=== PATIENT | female | born 1945 | race Native Hawaiian/Other Pacific Islander ===

== ENCOUNTER 2016-11-15 12:00 | Inpatient (IN) | payer MEDICARE, OTHER ==
[~2016-11-15] VITALS: Ht 154.9 cm; Wt 49.9 kg
[~2016-11-15 12:00] MED LIST: ASCO-371 PO; Acetaminophen GT; Blood Sugar Diagnostic VI; CLOP75TA2 PO; DEXT50DI8 IV; DOCU50LI GT; INSU100V28 SQ; LACT1CAP69 PO; LEVO100T10 GT; LINA5TAB PO; LISI2.5T2 PO; MULT-70 GT; Nut.tx.glucose Intolerance,Soy GT; PANT40SU2 GT; SIMV10TA6 GT
--- NOTE | 2016-11-15 12:18 | NUR ---
ekg in progress
--- NOTE | 2016-11-15 12:33 | NUR ---
laborer aquatic life at bedside for blood draw
[2016-11-15] MEDS ORDERED: [UNRECOGNIZED DRUG - OTHER] SQ (12:48)
[2016-11-15] MEDS ORDERED: GUAR1PAC2 GT (12:48)
[2016-11-15] MEDS ORDERED: GLIM2TAB GT (12:48)
[2016-11-15 12:49] LABS: BASOPHILS # (AUTO) 0.1 K/uL (0.0-8.0); BASOPHILS % (AUTO) 0.7 % (0.0-2.0); EOSINOPHILS # (AUTO) 0.8 K/uL (0.0-0.7); HEMATOCRIT 30.7 % (31.2-41.9); HEMOGLOBIN 10.8 g/dL (10.9-14.3); LYMPHOCYTES # (AUTO) 1.5 K/uL (20.0-40.0); LYMPHOCYTES % (AUTO) 17.5 % (20.5-51.5); MEAN CORPUSCULAR HEMOGLOBIN 35.5 uug (24.7-32.8); MEAN CORPUSCULAR HGB CONC 35 g/dL (32.3-35.6); MEAN CORPUSCULAR VOLUME 100.8 fL (75.5-95.3); MONOCYTES # (AUTO) 0.6 K/uL (2.0-10.0); MONOCYTES % (AUTO) 7.5 % (0.0-11.0); NEUTROPHILS # (AUTO) 5.6 K/uL (1.8-8.9); NEUTROPHILS % (AUTO) 65.3 % (38.5-71.5); PLATELET COUNT (AUTO) 232 K/uL (179-408); RED BLOOD CELL COUNT(AUTO) 3.05 MIL/uL (3.63-4.92); RED CELL DISTRIBUTION WIDTH 12.5 % (12.3-17.7); WHITE BLOOD COUNT (AUTO) 8.6 K/uL (3.8-11.8)
--- NOTE | 2016-11-15 12:53 | NUR ---
u/s tech at bedside for daryl venous doppler
[2016-11-15 12:59] LABS: ALBUMIN 3.7 g/dL (3.4-5.0); BILIRUBIN,DIRECT 0.1 mg/dL (0.0-0.2); BILIRUBIN,TOTAL 0.5 mg/dL (0.2-1.0); CALCIUM 9.7 mg/dL (8.5-10.1); POTASSIUM 4.4 mmol/L (3.5-5.1); TOTAL PROTEIN, SERUM 7.6 g/dL (6.4-8.2)
--- NOTE | 2016-11-15 14:13 | NUR ---
Pt vital signs updated patient restingi n bed in nad, at bedside.
[2016-11-15] MEDS ORDERED: INSULIN REGULAR, HUMAN 300 UNIT/3 ML VIAL SQ PRN (15:00)
[2016-11-15] MEDS ORDERED: ONDANSETRON 4 MG/2 ML VIAL IV PRN (15:00)
[2016-11-15] MEDS ORDERED: MORPHINE SULFATE 2 MG/1 ML DISP.SYRIN IV PRN (15:00)
[2016-11-15] MEDS ORDERED: MAGNESIUM HYDROXIDE 30 ML LIQUID UDC GT PRN (15:00)
[2016-11-15] MEDS ORDERED: DEXTROSE 50% 50 ML DISP.SYRIN IV PRN (15:00)
[2016-11-15] MEDS ORDERED: ACETAMINOPHEN 325 MG TABLET GT PRN (15:00)
[2016-11-15] MEDS ORDERED: Z GUARD REMEDY PASTE 57 GM TUBE TOP PRN (15:00)
--- NOTE | 2016-11-15 15:18 | NUR ---
report given to trey Gaytan for continuity of care .
--- NOTE | 2016-11-15 15:37 | NUR ---
Pt states "it hurts " speaking of her IV, R ac PIV flushed and blood return noted. Pt no c/o pain when flushing line.
--- NOTE | 2016-11-15 15:40 | NUR ---
ADMITTED FROM [facility] A 71 YO FEMALE WITH ADM DX OF SEIZURE DISORDER, ALERT BUT APHASIC DUE TO HX OF CVA/ RADHA, AT BEDSIDE FOR ADMISSION HX
[2016-11-15 15:45] VITALS: BP 122/70
[2016-11-15] MEDS ORDERED: ACETAMINOPHEN 650 MG/20.3 ML LIQUID UDC GT PRN (15:45)
[2016-11-15] MEDS ORDERED: LEVOFLOXACIN 500 MG/D5W 500 MG in PREMIXED 1 EACH IV SCH (16:00)
--- NOTE | 2016-11-15 16:49 | NUR ---
ROUTINE ADMISSION ASESSMENT INITIATED
[2016-11-15] MEDS: NUTRISOURCE FIBER 4 GM PACKET GT SCH (17:14)
[2016-11-15] MEDS: BLOOD SUGAR DIAGNOSTIC 1 EACH STRIP VI SCH ×2 (18:07→23:58)
[2016-11-15] MEDS: DIABETICSOURCE AC 1000ML LIQUID GT PRN (18:41)
--- NOTE | 2016-11-15 19:00 | NUR ---
PATIENT AWAKE BUT APHASIC, PATIENT RYTHM IS SINUS RYTHM, ON GTF FEEDING TOLERATE WELL, NO SOB NO CHEST PAIN NOTED, AIR MATTRESS AND DVT PUMP IN PLACE, TURN AND REPOSITION.
[2016-11-15 20:08] VITALS: BP 99/48
[2016-11-15] MEDS ORDERED: SIMVASTATIN 10 MG TABLET GT SCH (21:00)
--- NOTE | 2016-11-15 23:23 | NUR ---
PATIENT AWAKE, BUT APHASIC NO SOB NO CHEST NOTED, TURN AND REPOSITION, RYTHM IS SINUS RYTHM 90, NO S/S OF DISTRESS, GIVEN REPORT TO NURSE TAKING OVER. NO DISTRESS.
--- NOTE | 2016-11-15 23:39 | NUR ---
RECEIVED PATIENT IN BED AWAKE, BUT APHASIC, IN NO APPARENT DISTRESS. EVEN AND NONLABORED BREATHING OBSERVED. ON GT FEEDING AT 60 CC/HR, RESIDUAL OF 25CC. IV INTACT AND PATENT. REPOSITIONED FOR COMFORT. HOB ELEVATED. ON AIR MATTRESS. ASPIRATION PRECAUTIONS MAINTAINED. WILL CONTINUE TO MONITOR.
[2016-11-16] VITALS: BP 106/61
[2016-11-16 04:00] VITALS: BP 120/58
[2016-11-16] MEDS: BLOOD SUGAR DIAGNOSTIC 1 EACH STRIP VI SCH ×3 (05:34→17:45)
[2016-11-16] MEDS: PANTOPRAZOLE ORAL SUSPENSION 40 MG SUSPDR.PKT GT SCH (05:34)
--- NOTE | 2016-11-16 06:55 | NUR ---
PT RESTING IN BED, IN NO ACUTE DISTRESS NOTED THROUGHOUT SHIFT.GT FEEDING AT 60CC/HR, TOLERATING WELL, NO RESIDUAL THIS AM. KEPT CLEAN AND DRY. TURNED/REPOSITIONED. ALL NEEDS MET. CALL LIGHT IN REACH. SAFETY MAINTAINED. Addendum: 11/16/16 at 0740 by WENDY STEPHEN RN NO SEIZURE ACTIVITY NOTED PER SHIFT.
[2016-11-16 06:59] LABS: BASOPHILS % (AUTO) 0.5 % (0.0-2.0); EOSINOPHILS # (AUTO) 0.6 K/uL (0.0-0.7); EOSINOPHILS % (AUTO) 6.3 % (0.0-7.0); HEMATOCRIT 29.9 % (31.2-41.9); HEMOGLOBIN 10.8 g/dL (10.9-14.3); LYMPHOCYTES # (AUTO) 1.4 K/uL (20.0-40.0); MEAN CORPUSCULAR HEMOGLOBIN 36.4 uug (24.7-32.8); MEAN CORPUSCULAR HGB CONC 36 g/dL (32.3-35.6); MEAN CORPUSCULAR VOLUME 100.9 fL (75.5-95.3); MONOCYTES # (AUTO) 0.7 K/uL (2.0-10.0); MONOCYTES % (AUTO) 7.6 % (0.0-11.0); NEUTROPHILS # (AUTO) 6.5 K/uL (1.8-8.9); NEUTROPHILS % (AUTO) 70.6 % (38.5-71.5); PLATELET COUNT (AUTO) 224 K/uL (179-408); RED BLOOD CELL COUNT(AUTO) 2.96 MIL/uL (3.63-4.92); RED CELL DISTRIBUTION WIDTH 12.7 % (12.3-17.7); WHITE BLOOD COUNT (AUTO) 9.2 K/uL (3.8-11.8)
[2016-11-16 07:20] LABS: ALBUMIN 3.4 g/dL (3.4-5.0); BILIRUBIN,TOTAL 0.4 mg/dL (0.2-1.0); CALCIUM 9.3 mg/dL (8.5-10.1); CREATININE 1.2 mg/dL (0.6-1.3); MAGNESIUM 2.2 mg/dL (1.8-2.4); PHOSPHOROUS 3.4 mg/dL (2.5-4.9); POTASSIUM 4.6 mmol/L (3.5-5.1); THYROID STIMULATING HORMONE 7.386 mIU/mL (0.358-3.740); TOTAL PROTEIN, SERUM 7.3 g/dL (6.4-8.2)
[2016-11-16] MEDS: DOCUSATE SODIUM 100 MG/10 ML LIQUID UDC GT SCH (08:26)
[2016-11-16] MEDS: MULTIVITAMINS,THERAPEUTIC TABLET GT SCH (08:27)
[2016-11-16] MEDS: CLOPIDOGREL 75 MG TABLET GT SCH (08:27)
[2016-11-16] MEDS: ASCORBIC ACID 500 MG TABLET GT SCH (08:27)
[2016-11-16] MEDS: GLIMEPIRIDE 2 MG TABLET GT SCH (08:27)
[2016-11-16] MEDS: ACIDOPHILUS/BULGARICUS CHEW TAB GT SCH (08:27)
[2016-11-16] MEDS: NUTRISOURCE FIBER 4 GM PACKET GT SCH ×2 (08:31→17:45)
[2016-11-16] MEDS ORDERED: Medication Not On Formulary EA (Multivitamins (Multivitamin) 1 EACH) GT SCH (09:00)
[2016-11-16] MEDS ORDERED: LACTOBACILLUS ACIDOPHILUS PO SCH (09:00)
[2016-11-16] MEDS ORDERED: PANTOPRAZOLE SODIUM 40 MG TABLET.DR PO SCH (09:00)
[2016-11-16] MEDS: LINAGLIPTIN 5 MG TABLET PO SCH (10:51)
[2016-11-16 11:20] VITALS: BP 100/58
--- NOTE | 2016-11-16 12:00 | NUR ---
pt's refused insulin due to blood sugar is 131
[2016-11-16 14:45] LABS: *BILIRUBIN,URIN NEGATIVE (NEGATIVE); *BLOOD, URINE NEGATIVE (NEGATIVE); *COLOR,URINE YELLOW (YELLOW); *KETONES,URINE NEGATIVE (NEGATIVE); *PROTEIN,URINE NEGATIVE (NEGATIVE); *UROBILINOGEN,URINE 0.2 E.U./dl (NORMAL); LEUKOCYTE ESTERASE ,URINE NEGATIVE (NEGATIVE); NITRITE, URINE NEGATIVE (NEGATIVE); PH,URINE 8.5 (5.0-8.0); UGLUCOSE NEGATIVE (NEGATIVE)
[2016-11-16 14:58] LABS: *CLARITY,URINE SLIGHTLY HAZY (CLEAR)
[2016-11-16 15:01] LABS: BACTERIA,URINE FEW /HPF (NONE SEEN); RBC,URINE 0-3 /HPF (0-3); SQUAMOUS EPITHELIAL CELL,UR FEW /HPF (NONE SEEN)
[2016-11-16 15:02] LABS: URINE AMORPHOUS PHOSPHATES MODERATE /HPF
[2016-11-16 15:14] VITALS: BP 99/56
[2016-11-16] MEDS ORDERED: LEVOFLOXACIN 250MG /D5W 250 MG in PREMIXED 1 EACH IV SCH (17:00)
--- NOTE | 2016-11-16 19:00 | NUR ---
PT IS CALM, RESTING IN BED COMFORTABLY. NO S/S OF RESPIRATORY DISTRESS NOTED. 0ML OUT RESIDUAL. FEEDING IS GOING, GTUBE INTACT. NO PAIN NOTED. ALL SAFETY NEEDS ARE MET.
[2016-11-16 20:00] VITALS: BP 112/61
--- NOTE | 2016-11-16 20:00 | NUR ---
RECEIVED PT IN BED CALM, RESTING COMFORTABLY. EVEN AND NONLABORED BREATHING OBSERVED, PT ON RA. GT FEEDING INFUSING, TOLERATING WELL, WITH 5CC RESIDUAL AT THIS TIME. AT BEDSIDE. ASPIRATION PRECAUTIONS AND SAFETY MEASURES IN PLACE/MAINTAINED. WILL CONTINUE TO MONITOR.
[2016-11-16] MEDS ORDERED: SIMVASTATIN 20 MG TABLET GT SCH (21:00)
[2016-11-16 23:48] VITALS: BP 139/78
[2016-11-17] MEDS: DIABETICSOURCE AC 1000ML LIQUID GT PRN (00:18)
[2016-11-17] MEDS: BLOOD SUGAR DIAGNOSTIC 1 EACH STRIP VI SCH ×3 (00:18→11:57)
[2016-11-17 04:55] VITALS: BP 101/53
[2016-11-17] MEDS: PANTOPRAZOLE ORAL SUSPENSION 40 MG SUSPDR.PKT GT SCH (05:52)
--- NOTE | 2016-11-17 06:45 | NUR ---
PT IN BED RESTING COMFORTABLY, SLEPT INTERMITTENTLY. NO S/S OF RESPIRATORY DISTRESS NOTED PER SHIFT. NO SEIZURE ACTIVITY NOTED PER SHIFT. REMAINS ON GT FEEDING, TOLERATING WELL, WITH RESIDUAL OF 0ML THIS AM. NO S/S OF PAIN OR UNEASINESS NOTED. ALL SAFETY NEEDS ARE MET.
[2016-11-17] MEDS ORDERED: LEVOTHYROXINE SODIUM 25 MCG TABLET PO SCH (07:00)
[2016-11-17] MEDS ORDERED: LEVOTHYROXINE SODIUM 25 MCG TABLET GT SCH (07:00)
[2016-11-17 07:19] LABS: ALBUMIN 3.3 g/dL (3.4-5.0); BILIRUBIN,TOTAL 0.4 mg/dL (0.2-1.0); CREATININE 1.1 mg/dL (0.6-1.3); MAGNESIUM 2.2 mg/dL (1.8-2.4); PHOSPHOROUS 2.8 mg/dL (2.5-4.9); POTASSIUM 3.9 mmol/L (3.5-5.1)
[2016-11-17] MEDS: CLOPIDOGREL 75 MG TABLET GT SCH (08:33)
[2016-11-17] MEDS: ACIDOPHILUS/BULGARICUS CHEW TAB GT SCH (08:33)
[2016-11-17] MEDS: GLIMEPIRIDE 2 MG TABLET GT SCH (08:33)
[2016-11-17] MEDS: DOCUSATE SODIUM 100 MG/10 ML LIQUID UDC GT SCH (08:34)
[2016-11-17] MEDS: MULTIVITAMINS,THERAPEUTIC TABLET GT SCH (08:34)
[2016-11-17] MEDS: LINAGLIPTIN 5 MG TABLET PO SCH (08:35)
[2016-11-17] MEDS: ASCORBIC ACID 500 MG TABLET GT SCH (08:38)
[2016-11-17] MEDS: NUTRISOURCE FIBER 4 GM PACKET GT SCH ×2 (08:38→17:00)
[2016-11-17 09:08] LABS: BASOPHILS # (AUTO) 0.1 K/uL (0.0-8.0); EOSINOPHILS # (AUTO) 0.7 K/uL (0.0-0.7); EOSINOPHILS % (AUTO) 9.4 % (0.0-7.0); HEMATOCRIT 29.2 % (31.2-41.9); HEMOGLOBIN 10.3 g/dL (10.9-14.3); LYMPHOCYTES # (AUTO) 1.3 K/uL (20.0-40.0); LYMPHOCYTES % (AUTO) 19.3 % (20.5-51.5); MEAN CORPUSCULAR HEMOGLOBIN 35.3 uug (24.7-32.8); MEAN CORPUSCULAR HGB CONC 35 g/dL (32.3-35.6); MEAN CORPUSCULAR VOLUME 100.7 fL (75.5-95.3); MONOCYTES # (AUTO) 0.6 K/uL (2.0-10.0); MONOCYTES % (AUTO) 8.1 % (0.0-11.0); NEUTROPHILS # (AUTO) 4.2 K/uL (1.8-8.9); NEUTROPHILS % (AUTO) 62.2 % (38.5-71.5); PLATELET COUNT (AUTO) 201 K/uL (179-408); RED BLOOD CELL COUNT(AUTO) 2.91 MIL/uL (3.63-4.92); RED CELL DISTRIBUTION WIDTH 12.8 % (12.3-17.7); WHITE BLOOD COUNT (AUTO) 6.9 K/uL (3.8-11.8)
[2016-11-17 11:06] VITALS: BP 109/67
--- NOTE | 2016-11-17 11:38 | NUR ---
WOUND CARE CONSULT: PT PRESENTS WITH SACRAL ULCER, STAGE III PRESENT ON ADMISSION. PT FOLLOWED BY SURGEON AT HER FACILITY PER AT BEDSIDE. RECOMMEND SURGICAL FOLLOW UP. RECOMMENDATIONS MADE FOR WOUND CARE AND SKIN PROTECTION. DISCUSSED WITH NURSING STAFF. PT ON FIRST STEP MATTRESS. ALL SKIN PROTECTION MEASURES IN PLACE. MD IN AGREEMENT WITH PLAN OF CARE. Addendum: 11/17/16 at 1139 by LYNDA TAYLOR RN Amended: Links added.
--- NOTE | 2016-11-17 12:00 | NUR ---
PATIENT BEEN RESTING, NO S/S OF DISTRESS NOTED. FLACC 0 FOR PAIN. AT THE BEDSIDE. IV STILL INTACT. LYNDA WOUND CARE NURSE CAME TO ASSESS WOUND, WOUND TREATMENT WAS DONE AND DOCUMENTED. BM TODAY. GT TUBE SITE CLEAN AND INTACT, PATENT. PATIENT BEEN DISCHARGE BY ASTER RICHARDSON NP TO [facility]. WILL CONTINUE MONITORING.
[2016-11-17] MEDS ORDERED: LEVOFLOXACIN 500 MG TABLET PO SCH (13:00)
[2016-11-17] MEDS ORDERED: LEVOFLOXACIN 250 MG TABLET PO SCH (13:00)
[2016-11-17] MEDS ORDERED: PANT40SU2 GT (13:06)
[2016-11-17] MEDS ORDERED: LEVO25TA9 GT (13:06)
[2016-11-17] MEDS ORDERED: GLIM2TAB GT (13:06)
[2016-11-17] MEDS ORDERED: Nut.tx.glucose Intolerance,Soy GT (13:06)
[2016-11-17] MEDS ORDERED: MULT-24 GT (13:06)
[2016-11-17] MEDS ORDERED: LEVO250T2 PO (13:06)
[2016-11-17] MEDS ORDERED: CLOP75TA2 GT (13:06)
[2016-11-17] MEDS ORDERED: Wheat Dextrin GT (13:06)
[2016-11-17] MEDS ORDERED: ACET650S26 GT (13:06)
[2016-11-17] MEDS ORDERED: Blood Sugar Diagnostic VI (13:06)
[2016-11-17] MEDS ORDERED: DOCU50LI GT (13:06)
[2016-11-17] MEDS ORDERED: SIMV20TA6 GT (13:06)
[2016-11-17] MEDS ORDERED: ASCO500T9 GT (13:06)
[2016-11-17] MEDS ORDERED: MAGN400O4 GT (13:06)
[2016-11-17] MEDS ORDERED: INSU100V28 SQ (13:06)
[2016-11-17] MEDS ORDERED: ACID1TAB4 GT (13:06)
[2016-11-17 15:01] VITALS: BP 98/57
[2016-11-17] MEDS ORDERED: LEVO250T2 GT (15:28)
--- NOTE | 2016-11-17 15:33 | NUR ---
PATIENT BEEN DISCHARGE TO [facility] IN STABLE CONDITION. NO S/S OF DISTRESS NOTED. IV AND ID REMOVED. DISCHARGE INSTRUCTIONS WERE EXPLAINED TO DUE TO PT MENTAL STATUS, SIGNED THE INSTRUCTIONS WELL. NO BELONGINGS WITH HER. PATIENT WAS TAKEN WAS AMBULANCE ACCOMPANIED BY PATIENT. REPORT WAS GIVEN TO MORRIS ALTMAN IN THE FACILITY.
== END 2016-11-17 17:30 | DRG 91 ==
LOC: ER 12:00 → EDBD 12:00 → TELE 15:26 → MED 11-17 12:50
PROVIDERS: ADMIT Internal Medicine; ATTEND Internal Medicine
DX: G25.3 Myoclonus (principal); I50.33 Acute on chronic diastolic (congestive) heart failure; J18.9 Pneumonia, unspecified organism; I69.354 Hemiplegia and hemiparesis following cerebral infarction affecting left non-dominant side; D68.59 Other primary thrombophilia; J98.11 Atelectasis; N39.0 Urinary tract infection, site not specified; I69.398 Other sequelae of cerebral infarction; I69.320 Aphasia following cerebral infarction; E03.9 Hypothyroidism, unspecified; I25.10 Atherosclerotic heart disease of native coronary artery without angina pectoris; R13.10 Dysphagia, unspecified; I73.9 Peripheral vascular disease, unspecified; E78.5 Hyperlipidemia, unspecified; I11.0 Hypertensive heart disease with heart failure; I48.91 Unspecified atrial fibrillation; Z79.4 Long term (current) use of insulin; Z79.84 Long term (current) use of oral hypoglycemic drugs; Z93.1 Gastrostomy status; D63.8 Anemia in other chronic diseases classified elsewhere; Z98.61 Coronary angioplasty status; E11.65 Type 2 diabetes mellitus with hyperglycemia; I45.81 Long QT syndrome; R53.1 Weakness
CPT/HCPCS: 36415; 70030-TC; 70450; 71010; 83735; 84100; 84443; 85025; 85730; 92506; 93005; 97001; A4663; C1758; J1956

== ENCOUNTER 2017-01-08 11:05 | Inpatient (IN) | payer MEDICARE, OTHER ==
[~2017-01-08] VITALS: Ht 152.4 cm; Wt 63.5 kg
[~2017-01-08 11:05] MED LIST changes: +ACET650S26 GT; +ACID1TAB4 GT; -ASCO-371 PO; +ASCO500T9 GT; -Acetaminophen GT; +CLOP75TA15 GT; -CLOP75TA2 PO; -DEXT50DI8 IV; +GLIM2TAB GT; -LACT1CAP69 PO; -LEVO100T10 GT; +LEVO250T2 GT; +LEVO25TA9 GT; -LINA5TAB PO; -LISI2.5T2 PO; +MAGN400O6 GT; +MULT-24 GT; -MULT-70 GT; -SIMV10TA6 GT; +SIMV20TA6 GT; +Wheat Dextrin GT
--- NOTE | 2017-01-08 11:24 | NUR ---
PT IS IN ROOM #2A. DR BIRMINGHAM EVALUATED THE PT.
[2017-01-08] MEDS ORDERED: EZET1TAB27 GT (11:37)
[2017-01-08] MEDS ORDERED: GUAI-965 PO (11:37)
[2017-01-08] MEDS ORDERED: MULT-1168 GT (11:37)
[2017-01-08] MEDS ORDERED: BACL10TA PO (11:37)
[2017-01-08] MEDS ORDERED: LISI-607 PO (11:37)
[2017-01-08] MEDS ORDERED: ACID1TAB4 GT (11:37)
--- NOTE | 2017-01-08 14:13 | NUR ---
PT'S REFUSED PT's BLOOD TESTS AND EKG TO BE DONE. DR BIRMINGHAM NOTIFIED.
--- NOTE | 2017-01-08 15:00 | NUR ---
SBAR report given to Bel CACERES via telephone.
--- NOTE | 2017-01-08 15:34 | NUR ---
pt was transfered to room #208. report was given to tn m/s.
--- NOTE | 2017-01-08 15:45 | NUR ---
RECEIVED PATIENT FROM ED 71 YEARS OLD FEMALE FOR DX OF GT MALFUNCTION PLACED INTO BED FIXED AND MADE COMFORTABLE PATIENT IA AWAKE WITH GOOD EYE CONTACT BUT NON VERBAL ALL NEEDS ANTICIPATED AND SATISFIED.PATIENTS IS AT THE BEDSIDE AND ASSISTED WITH THE ADMISSION PROCESS.PATIENT LEFT UPPER EXTREMITY IS CONTRACTED RIGHT ARM IS FLACCID BOTH LOWER EXT IS FLACCID.GT INTACT NOTED PARTAL THICKNESS LOSS ON THE SACRAL AND THE LEFT BUTTOCKS TURNED AND REPOSITIONED AND MADE COMFORTABLE.PATIENTS EDUCATED AND ORIENTED ON THE HOSPITAL PROTOCOL AND HE EXPRESSED UNDERSTANDING.
[2017-01-08 16:00] VITALS: BP 109/68
[2017-01-08] MEDS ORDERED: DIABETICSOURCE AC 1000ML LIQUID GT PRN (16:45)
--- NOTE | 2017-01-08 17:00 | NUR ---
ORDER TO START GT FEEDINGS NOTED FROM DR SHAHID AND CARRIED.TUBE FLUSHED WITH H2O AND CONNECTED ORDERED.
--- NOTE | 2017-01-08 18:22 | NUR ---
TOLERATING TUBE FEEDINGS ORDERED WILL CONTINUE TO OBSERVE.
[2017-01-08] MEDS ORDERED: ACETAMINOPHEN 650 MG SUPP.RECT RC PRN (19:45)
[2017-01-08] MEDS ORDERED: MORPHINE SULFATE 2 MG/1 ML DISP.SYRIN IV PRN (19:45)
[2017-01-08 20:00] VITALS: BP 102/65
--- NOTE | 2017-01-08 20:00 | NUR ---
Pt. awake/alert/orientated to person - non-verbal. Pt. spouse/daughter and daughter at bedside. G/Tube patent flushed 100ml water/in place/patent and G/Tube feeding - diabetic Source formula at 60ml/hour infusing/tolerated. Pt. spouse/daughter at bedside. Dr.. Harris in to see Pt. and her family and discussed Pt. condition/G/Tube Placement and IV access and Blood draws for Lab. studies - surgery preparation requirements needed. Pt. family still refused IV Access/ Blood draws for Lab. Dr. Harris/family decided to make the decision in the morning related to the G/Tube Placement procedure and to have the things done. Continue to monitor Pt. Pt. resting quietly.
--- NOTE | 2017-01-08 21:00 | NUR ---
G/Tube site cleanse with N/Saline and dry dressing applied. Note small of bloody drainage.
[2017-01-08] MEDS: Z GUARD REMEDY PASTE 57 GM TUBE TOP SCH (22:41)
--- NOTE | 2017-01-09 00:15 | NUR ---
Pt. resting quietly. Spouse at bed side. No voiced complaint and no acute distress noted. Continue to monitor Pt. Pt. V/Signs stable/afebrile. Pt. endorsed to night nurse.
--- NOTE | 2017-01-09 00:15 | NUR ---
RECEIVED REPORT FROM ISI CACERES. PATIENT IS SLEEPING COMFORTABLY AT THIS TIME. AT BEDSIDE. NO ACUTE DISTRESS NOTED. SAFETY MAINTAINED. CALL LIGHT WITHIN REACH.
[2017-01-09 06:17] VITALS: BP 110/67
--- NOTE | 2017-01-09 06:57 | NUR ---
SLEPT INTERMITTENTLY THROUGHOUT THE NIGHT. NO ACUTE DISTRESS NOTED. AT BEDSIDE. SAFETY INITIATED CALL LIGHT WITHIN REACH.
[2017-01-09] MEDS ORDERED: PANTOPRAZOLE SODIUM 40 MG VIAL IV SCH (09:00)
--- NOTE | 2017-01-09 09:30 | NUR ---
PATIENT REMAINS ON DIABETA SOURCE ORDERED AND TOLERATED WELL WITH NO GASTRIC RESIDUAL AT THIS TIME.PATIENT WAS SEEN BY DR NEWBERRY WITH NO NEW ORDERS AT THIS TIME.PATIENT HAS NO IV ACCESS AND HER HAS REFUSED FOR A HEPLOCK TO BE PLACED AND MD IS AWARE.
[2017-01-09] MEDS: Z GUARD REMEDY PASTE 57 GM TUBE TOP SCH (10:23)
[2017-01-09 11:51] VITALS: BP 122/67
--- NOTE | 2017-01-09 12:22 | NUR ---
patients yonatan in the room and stated that he wants to take his out of this hospital does not want to wait for the gi doctor anymore so dr nori ordaz notified and he stated that he already notified the gi doctor and that if patient wants to leave he will need to sign against medical advise.so medical advise barbi given to the patient and he signed for it awaiting for patient to be picked up.
--- NOTE | 2017-01-09 14:20 | NUR ---
EXIT CARE COMPLETED AND GIVEN TO PATIENTS AURA AND HE SIGNED RECEIVING THEM HE STATED THAT HE HAS CALLED THE AMBULANCE TO [facility]IST[facility] AND JUST WAITING FOR THEM.
--- NOTE | 2017-01-09 15:30 | NUR ---
PATIENT STILL HERE AND PER HER AURA HE IS STILL WAITING FOR THE AMBULANCE PLASTICS PLATER STATED THAT HIS DAUGHTER ALREADY CALLED THEM AND THEY WILL BE HERE SOON.
[2017-01-09 16:00] VITALS: BP 115/65
--- NOTE | 2017-01-09 16:30 | NUR ---
FLIGHT RESERVATIONS MANAGER FROM [facility] HERE AND BROUGHT A WHEEL CHAIR AND PATIENT PLACED INTO THE W/CHAIR AND TOOK HER OUT TO THE [facility] VAN IN SATISFACTORY CONDITION,WITH GT PATENT AT THIS TIME.
== END 2017-01-09 16:18 | disposition left against medical advice (07) | DRG 393 ==
LOC: ER 11:21 → MED 15:33
PROVIDERS: ADMIT Internal Medicine; ATTEND Internal Medicine
DX: K94.23 Gastrostomy malfunction (principal); G93.49 Other encephalopathy; I69.351 Hemiplegia and hemiparesis following cerebral infarction affecting right dominant side; D68.59 Other primary thrombophilia; I69.320 Aphasia following cerebral infarction; I69.391 Dysphagia following cerebral infarction; R13.10 Dysphagia, unspecified; I25.10 Atherosclerotic heart disease of native coronary artery without angina pectoris; I69.318 Other symptoms and signs involving cognitive functions following cerebral infarction; Z95.5 Presence of coronary angioplasty implant and graft; E03.9 Hypothyroidism, unspecified; D53.9 Nutritional anemia, unspecified; I08.0 Rheumatic disorders of both mitral and aortic valves; E11.51 Type 2 diabetes mellitus with diabetic peripheral angiopathy without gangrene; E78.5 Hyperlipidemia, unspecified; Z74.01 Bed confinement status; Z79.4 Long term (current) use of insulin; G47.30 Sleep apnea, unspecified; K59.00 Constipation, unspecified; Z79.02 Long term (current) use of antithrombotics/antiplatelets; Z79.899 Other long term (current) drug therapy; Z79.84 Long term (current) use of oral hypoglycemic drugs; I11.9 Hypertensive heart disease without heart failure
CPT/HCPCS: 93005; A4217; C9113